=== PATIENT | male | born 1990 | race Caucasian/White ===

== ENCOUNTER 2017-04-07 05:21 | Emergency (ER) | payer OTHER ==
[~2017-04-07] VITALS: Ht 162.6 cm; Wt 62.0 kg
[2017-04-07 05:24] VITALS: Ht 162.6 cm; Wt 62.0 kg
--- NOTE | 2017-04-07 05:43 | ERA ---
ER Documentation Chief Complaint Date/Time DATE: 04/07/17 TIME: 05:40 Chief Complaint rash on penile area w/ itchiness HPI This is a otherwise healthy 26-year-old male presenting with a chief complaint of genital sores that are described as pruritic and nonpainful 1 day. Patient says that his who is his only sexual partner had a urinary tract infection that she was given antibiotics for 3 days ago. Patient has not taken any measures to relieve the symptoms. Denies dysuria, hematuria or testicular pain. Patient has no other complaints and describes no other associated manifestations. ROS All systems reviewed and are negative except as per history of present illness. Medications Home Meds Active Scripts Acyclovir* (Acyclovir*) 400 Mg Tablet, 400 MG PO TID for 10 Days, TAB Prov:EVARISTO BROUSSARD PA-C 04/07/17 Reported Medications [None] No Conflict Check 04/26/10 Allergies Allergies: Coded Allergies: No Known Allergies (Verified Allergy, Mild, 05/18/11) PMhx/Soc History of Surgery: Yes (APPY) Anesthesia Reaction: No Hx Neurological Disorder: No Hx Respiratory Disorders: No Hx Cardiac Disorders: No Hx Psychiatric Problems: No Hx Miscellaneous Medical Probl: No Hx Alcohol Use: Yes (SOCIALLY) Hx Substance Use: No Hx Tobacco Use: No Physical Exam Vitals Physical Exam Const: Well-appearing short stature 26-year-old male in no acute distress. Head: Atraumatic Eyes: Normal Conjunctiva ENT: Normal External Ears, Nose and Mouth. Neck: Full range of motion..~ No meningismus. Resp: Clear to auscultation bilaterally Cardio: Regular rate and rhythm, no murmurs Abd: Soft, non tender, non distended. Normal bowel sounds Skin: No petechiae or rashes Back: No midline or flank tenderness Ext: No cyanosis, or edema Neur: Awake and alert Psych: Normal Mood and Affect : < 1 mm pink, nontender, papules most consistent with herpes simplex virus II. Results 24 hrs Laboratory Tests Test 04/07/17 05:54 Bedside Urine pH (LAB) 7.0 Bedside Urine Protein (LAB) Negative Bedside Urine Glucose (UA) Negative Bedside Urine Ketones (LAB) Negative Bedside Urine Blood Negative Bedside Urine Nitrite (LAB) Negative Bedside Urine Leukocyte Esterase (L Negative Procedures/MDM This is a 26-year-old male presenting with a chief complaint of genital itching and lesions. Signs and symptoms are most consistent with herpes simplex virus type II. Workup included urine and blood for GC, chlamydia, syphilis. Of little suspicion for urethritis, cystitis, upper urinary tract infection, testicular or systemic involvement, or serious bacterial infection. Patient's vitals are stable will be discharged with discharge instructions and return precautions. Advised patient to follow-up with outpatient clinic for more thorough evaluation and possible referral to specialist. I spoke to the patient regarding his current condition and is verbally acknowledged that he understands and agrees to the plan of management. Departure Diagnosis: Primary Impression: Sexually transmitted disease (STD) Additional Impression: Disorder of male genital organs Condition: Stable Additional Instructions: Follow up with your PCP within the next 1-3 days for a more thorough evaluation and a possible referral to a specialist. Return the the emergency department immediately if symptoms worsen or change. If you have any questions regarding medications, ask your pharmacist or us before you leave. If any adverse reactions occur while taking your medications, discontinue the treatment and return to the emergency department immediately. Take your medications as directed, and complete the entire course of treatment. EVARISTO BROUSSARD PA-C Apr 07, 2017 05:43
[2017-04-07 05:48] LABS: URINE BLOOD (Dip) POC Negative (NEGATIVE)
[2017-04-07] MEDS ORDERED: ACYC400T2 PO (05:54)
[2017-04-14 16:13] LABS: URINE BLOOD (Dip) POC Negative (NEGATIVE)
== END 2017-04-07 06:12 | disposition home or self-care (01) ==
LOC: FTE 05:21
DX: A64 Unspecified sexually transmitted disease (principal)
CPT/HCPCS: 81003; Z7502; 99283